=== PATIENT | female | born 1965 | race Caucasian/White ===

== ENCOUNTER 2020-11-28 10:06 | Day surgery (SDC) | payer OTHER ==
[2020-11-26 16:25] VITALS: BMI 22.6
[2020-11-28] MEDS ORDERED: PROPOFOL 20 ML ONE (11:22)
[2020-11-28] MEDS ORDERED: LIDOCAINE HCL/PF 2% SDV 5ML VIAL ONE (11:22)
[2020-11-28 11:50] VITALS: TEMP 97.8
[2020-11-28 12:10] VITALS: BP 133/78; PULSE 63
== END 2020-11-28 12:40 | disposition home or self-care (01) ==
LOC: FASU-ENDO 10:06
PROVIDERS: ATTEND Internal Medicine Gastroenterology
PROC: 0DBH8ZX Excision of Cecum, Via Natural or Artificial Opening Endoscopic, Diagnostic (ICD-10-PCS; principal; 2020-11-28 11:12)
DX: Z12.11 Encounter for screening for malignant neoplasm of colon (principal); D12.0 Benign neoplasm of cecum; K64.1 Second degree hemorrhoids
CPT/HCPCS: 88305-TC

== ENCOUNTER 2023-12-09 10:47 | Day surgery (SDC) | payer OTHER ==
[2023-12-02 17:15] VITALS: BMI 24.0
[2023-12-09 12:27] VITALS: TEMP 96.9
[2023-12-09 12:30] VITALS: BP 120/64; PULSE 64; RESP 19
== END 2023-12-09 12:45 | disposition home or self-care (01) ==
LOC: FASU-ENDO 10:47
PROVIDERS: ATTEND Internal Medicine Gastroenterology
PROC: 0DBL8ZX Excision of Transverse Colon, Via Natural or Artificial Opening Endoscopic, Diagnostic (ICD-10-PCS; 2023-12-09)
PROC: 0DBN8ZX Excision of Sigmoid Colon, Via Natural or Artificial Opening Endoscopic, Diagnostic (ICD-10-PCS; principal; 2023-12-09 11:54)
DX: Z12.11 Encounter for screening for malignant neoplasm of colon (principal); K63.5 Polyp of colon; K63.89 Other specified diseases of intestine; K64.1 Second degree hemorrhoids; K57.30 Diverticulosis of large intestine without perforation or abscess without bleeding; Z86.010 Personal history of colon polyps
CPT/HCPCS: 88305-TC